=== PATIENT | male | born 1970 | race Two or more races ===

== ENCOUNTER 2020-11-19 12:53 | Emergency (ER) | payer OTHER ==
[~2020-11-19] VITALS: Ht 170.2 cm; Wt 90.7 kg
[2020-11-19] MEDS ORDERED: COZAAR50 MG (13:06)
[2020-11-19] MEDS ORDERED: GLUMETZA500 MG (13:07)
== END 2020-11-19 18:49 | disposition designated cancer center or children's hospital (05) ==
LOC: ER 12:53 → CPU-OBS 13:53 → ER 18:49
DX: I16.1 Hypertensive emergency (principal); I10 Essential (primary) hypertension; R77.8 Other specified abnormalities of plasma proteins; R07.89 Other chest pain
CPT/HCPCS: G0378; G0379; 93005